=== PATIENT | female | born 1975 | race American Indian/Alaskan Native ===

== ENCOUNTER 2022-07-13 00:32 | Emergency (ER) | payer SELFPAY ==
[2022-07-13 01:17] VITALS: BP 130/76
== END 2022-07-13 06:01 | disposition left against medical advice (07) ==
LOC: ED 00:32
DX: S10.96XA Insect bite of unspecified part of neck, initial encounter (principal); Z53.21 Procedure and treatment not carried out due to patient leaving prior to being seen by health care provider; W57.XXXA Bitten or stung by nonvenomous insect and other nonvenomous arthropods, initial encounter; Y93.89 Activity, other specified; Y92.89 Other specified places as the place of occurrence of the external cause; Y99.8 Other external cause status